=== PATIENT | female | born 1995 ===

== ENCOUNTER 2021-11-29 00:03 | Inpatient (IN) ==
[2021-11-29] MEDS ORDERED: LACTATED RINGERS 1,000 ML IV ONE (00:17)
[2021-11-29] MEDS ORDERED: OXYTOCIN/LR 20 UNIT/1,000 ML BAG IV ONE (01:06)
[2021-11-29] MEDS ORDERED: CARBOPROST TROMETHAMINE 250 MCG/ML AMP IM PRN (01:06)
[2021-11-29] MEDS ORDERED: miSOPROStoL 200 MCG TABLET RECTAL PRN (01:06)
[2021-11-29] MEDS ORDERED: ACETAMINOPHEN 325 MG TABLET PO PRN (01:06)
[2021-11-29] MEDS ORDERED: LACTATED RINGERS 500 ML IV PRN (01:06)
[2021-11-29] MEDS ORDERED: METHYLERGONOVINE 0.2 MG/1 ML AMP IM PRN (01:06)
[2021-11-29] MEDS ORDERED: TRANEXAMIC ACID 1,000 MG in SODIUM CHLORIDE 0.9% 100 ML IV PRN (01:06)
[2021-11-29] MEDS ORDERED: BUTORPHANOL 1 MG/ML VIAL IV PRN (01:06)
[2021-11-29] MEDS ORDERED: LACTATED RINGERS 250 ML IV ONE (01:06)
[2021-11-29] MEDS: LACTATED RINGERS 1,000 ML IV SCH ×2 (01:28→13:35)
[2021-11-29 01:30] LABS: Basophils % 0.2 % (0.0-0.8); Eosinophils # 0.2 10*3/uL (0.0-0.87); Hemoglobin 11.4 GM/DL (12.0-16.0); Immature Granulocytes % 0.8 %; Immature Granulocytes Absolute 0.11 #; Lymphocytes # 3.3 10*3/uL (1.4-4.0); Lymphocytes % 22.6 % (21.3-54.2); Mean Corpuscular HGB Conc 33.5 GM/DL (32-36); Mean Corpuscular Volume 93.2 FL (87-102); Mean Platelet Volume 11.2 FL (9.6-12.0); Monocytes # 1.3 10*3/uL (0.11-0.8); Monocytes % 9.1 % (1.7-12.7); Neutrophils % 66.3 % (38.7-73.9); Platelet Count 295 T/CUMM (130-400); Red Blood Count 3.65 MC/CUMM (3.8-5.5); White Blood Count 14.6 T/CUMM (4-12)
[2021-11-29] MEDS: BUTORPHANOL 2 MG/ML VIAL IV PRN ×3 (05:32→23:18)
[2021-11-29] MEDS: ONDANSETRON 4 MG/2 ML VIAL IV PRN (08:27)
[2021-11-29] MEDS: OXYTOCIN/LR 20 UNIT/1,000 ML BAG IV SCH (13:34)
[2021-11-30] MEDS: OXYTOCIN/LR 20 UNIT/1,000 ML BAG IV SCH (04:29)
[2021-11-30] MEDS ORDERED: OXYTOCIN/LR 20 UNIT/1,000 ML BAG IV SCH (04:30)
[2021-11-30] MEDS: LACTATED RINGERS 1,000 ML IV SCH ×4 (06:20→15:04)
[2021-11-30] MEDS: BUTORPHANOL 2 MG/ML VIAL IV PRN (08:21)
[2021-11-30] MEDS: ONDANSETRON 4 MG/2 ML VIAL IV PRN ×2 (09:58→16:50)
[2021-11-30] MEDS ORDERED: PROMETHAZINE 25 MG/1 ML VIAL IM PRN (10:03)
[2021-11-30] MEDS ORDERED: CITRIC ACID/SODIUM CITRATE 30 ML UDCUP PO ONE (10:03)
[2021-11-30] MEDS ORDERED: hydrOXYzine HCL 25 MG/1 ML VIAL IM PRN (10:03)
[2021-11-30] MEDS ORDERED: ePHEDrine 50 MG/ML VIAL IV PRN (10:03)
[2021-11-30] MEDS ORDERED: FAMOTIDINE 20 MG/2 ML VIAL IV ONE (10:03)
[2021-11-30] MEDS ORDERED: NALOXONE 0.4 MG/ML VIAL IV PRN (10:03)
[2021-11-30] MEDS ORDERED: diphenhydrAMINE 50 MG/1 ML VIAL IV PRN (10:03)
[2021-11-30] MEDS ORDERED: fentaNYL 2 MCG/ROPIV 0.2% EPID 100 ML EPIDURAL SCH (10:30)
[2021-11-30 11:58] LABS: Mucus,Urine Occasional /LPF (Occasional); RBC,Urine 1 /HPF (0-4)
[2021-11-30 11:59] LABS: Bilirubin,Urine Negative (Negative); Blood, Urine Negative (Negative); Glucose,Urine (UA) Negative (Negative); Ketones,Urine Negative (Negative); Nitrite,Urine Negative (Negative); Protein,Urine Trace mg/dL (Negative); Urine Appearance Clear (Clear); Urine Color Yellow (Yellow); Urine Specific Gravity 1.015 (1.001-1.035); Urine Urobilinogen 0.2 eU/dL (<2.0)
[2021-11-30] MEDS ORDERED: ceFAZolin 3,000 MG in SYRINGE 1 EACH IV ONE (16:57)
[2021-11-30] MEDS ORDERED: OXYTOCIN 10 UNIT/ML VIAL IM ONE (17:30)
[2021-11-30] MEDS ORDERED: OXYTOCIN/LR 30 UNIT/1,000 ML BAG IV ONE (17:30)
[2021-11-30] MEDS ORDERED: miSOPROStoL 200 MCG TABLET ONE (18:00)
[2021-11-30] MEDS ORDERED: CARBOPROST TROMETHAMINE 250 MCG/ML AMP IM ONE (18:01)
[2021-11-30] MEDS ORDERED: METHYLERGONOVINE 0.2 MG/1 ML AMP ONE (18:01)
[2021-11-30] MEDS ORDERED: SODIUM CHLORIDE 0.9% 0 ML IV ONE (18:01)
[2021-11-30] MEDS ORDERED: TRANEXAMIC ACID 1,000 MG/10 ML VIAL ONE (18:01)
[2021-11-30] MEDS ORDERED: LIDOCAINE MPF 2% /EPI 20 ML VIAL ONE (18:08)
[2021-11-30] MEDS ORDERED: ONDANSETRON 4 MG/2 ML VIAL ONE (18:08)
[2021-11-30] MEDS ORDERED: buprenorphine HCL 0.3 MG/ML VIAL ONE (18:11)
[2021-11-30] MEDS ORDERED: KETOROLAC 30 MG/1 ML VIAL ONE (18:37)
[2021-11-30] MEDS ORDERED: ACETAMINOPHEN INJ 1,000 MG/100 ML VIAL IV ONE (18:37)
[2021-11-30 19:07] LABS: Cord Arterial Blood HCO3 21.7 MMOL/L
[2021-11-30 19:10] LABS: Cord Venous Blood PCO2 44.4 MMHG; Cord Venous Blood PO2 30.2
[2021-11-30] MEDS ORDERED: MAGNESIUM HYDROXIDE SUSP 30 ML UDCUP PO PRN (19:29)
[2021-11-30] MEDS ORDERED: SIMETHICONE CHEW 80 MG TABLET PO PRN (19:29)
[2021-11-30] MEDS ORDERED: ONDANSETRON 4 MG/2 ML VIAL IV PRN (19:29)
[2021-11-30] MEDS ORDERED: IBUPROFEN 800 MG TABLET PO PRN (19:29)
[2021-11-30] MEDS ORDERED: ACETAMINOPHEN 325 MG TABLET PO PRN (19:29)
[2021-11-30] MEDS ORDERED: LACTATED RINGERS 1,000 ML IV SCH (19:30)
[2021-11-30] MEDS ORDERED: RHO(D) IMMUNE GLOBULIN 300 MCG SYRINGE IM ONE (20:00)
[2021-11-30] MEDS ORDERED: OXYTOCIN/LR 20 UNIT/1,000 ML BAG IV ONE (20:00)
[2021-12-01] MEDS: DOCUSATE SODIUM 100 MG CAPSULE PO SCH ×3 (00:43→21:01)
[2021-12-01 01:21] LABS: Basophils % 0.2 % (0.0-0.8); Eosinophils % 0.2 % (0.00-10.9); Hematocrit 30.9 VOL% (35.7-47.0); Hemoglobin 10.4 GM/DL (12.0-16.0); Immature Granulocytes % 0.6 %; Immature Granulocytes Absolute 0.11 #; Lymphocytes # 2.6 10*3/uL (1.4-4.0); Lymphocytes % 15.3 % (21.3-54.2); Mean Corpuscular HGB Conc 33.7 GM/DL (32-36); Mean Corpuscular Volume 93.4 FL (87-102); Mean Platelet Volume 11.4 FL (9.6-12.0); Monocytes % 5.9 % (1.7-12.7); Neutrophils % 77.8 % (38.7-73.9); Platelet Count 263 T/CUMM (130-400); Red Blood Count 3.31 MC/CUMM (3.8-5.5); Red Cell Distribution Width 13.8 % (9.3-17.3); White Blood Count 16.9 T/CUMM (4-12)
[2021-12-01] MEDS: ceFAZolin 2,000 MG/50 ML DUPLEX IV SCH ×2 (01:59→09:22)
[2021-12-01] MEDS ORDERED: ceFAZolin 2,000 MG in SODIUM CHLORIDE 0.9% 100 ML IV SCH (02:00)
[2021-12-01] MEDS ORDERED: ACETAMINOPHEN INJ 1,000 MG/100 ML VIAL IV SCH (03:00)
[2021-12-01] MEDS: ACETAMINOPHEN 500 MG TABLET PO SCH ×2 (03:42→10:33)
[2021-12-01] MEDS: KETOROLAC 30 MG/1 ML VIAL IV SCH ×3 (03:42→18:29)
[2021-12-01 08:55] LABS: Basophils % 0.2 % (0.0-0.8); Eosinophils # 0.1 10*3/uL (0.0-0.87); Eosinophils % 0.7 % (0.00-10.9); Hematocrit 31.6 VOL% (35.7-47.0); Hemoglobin 10.4 GM/DL (12.0-16.0); Immature Granulocytes % 0.4 %; Immature Granulocytes Absolute 0.06 #; Lymphocytes # 3.5 10*3/uL (1.4-4.0); Mean Corpuscular HGB Conc 32.9 GM/DL (32-36); Mean Corpuscular Volume 93.8 FL (87-102); Monocytes # 0.8 10*3/uL (0.11-0.8); Neutrophils % 66.7 % (38.7-73.9); Platelet Count 236 T/CUMM (130-400); Red Blood Count 3.37 MC/CUMM (3.8-5.5); Red Cell Distribution Width 13.9 % (9.3-17.3); White Blood Count 13.6 T/CUMM (4-12)
[2021-12-01] MEDS: MULTIVITAMIN (PRENATAL) TABLET PO SCH (09:27)
[2021-12-01] MEDS: METOCLOPRAMIDE 10 MG TABLET PO SCH (18:27)
[2021-12-02] MEDS: METOCLOPRAMIDE 10 MG TABLET PO SCH ×2 (01:57→10:42)
[2021-12-02 07:24] VITALS: BP 113/62
[2021-12-02] MEDS: MULTIVITAMIN (PRENATAL) TABLET PO SCH (09:19)
[2021-12-02] MEDS: DOCUSATE SODIUM 100 MG CAPSULE PO SCH (09:19)
[2021-12-02] MEDS ORDERED: MEASLES/MUMPS/RUBELLA VACCINE 0.5 ML VIAL SUBCUT ONE (10:53)
== END 2021-12-02 12:26 | disposition home or self-care (01) | DRG 788 ==
LOC: N.LD 00:03 → N.OB 12-01 00:05
PROVIDERS: ADMIT Obstetrics & Gynecology; ATTEND Obstetrics & Gynecology
PROC: LDCSECT (ICD-10-PCS; 2021-11-30 18:20)